=== PATIENT | female | born 1955 | race Caucasian/White ===

== ENCOUNTER 2023-12-26 11:05 | Outpatient (CLI) | payer MEDICARE | END 2023-12-26 11:06 | disposition home or self-care (01) | LOC: CSHMAMMO 11:05 | PROVIDERS: ATTEND Family Medicine | DX: Z12.31 Encounter for screening mammogram for malignant neoplasm of breast (principal); M81.0 Age-related osteoporosis without current pathological fracture; M85.89 Other specified disorders of bone density and structure, multiple sites; Z80.3 Family history of malignant neoplasm of breast; Z98.890 Other specified postprocedural states | CPT/HCPCS: 77063; 77067; 77080 ==

== ENCOUNTER 2025-07-02 09:40 | Outpatient (CLI) | payer MEDICARE ==
[2025-07-02 11:40] LABS: Estimated GFR - POC 69.0
[2025-07-02] MEDS ORDERED: Iopamidol 300 61% 100 ML VIAL FS ONE (14:02)
== END 2025-07-02 09:41 | disposition home or self-care (01) ==
LOC: CSHCT 09:40
PROVIDERS: ATTEND Family Medicine
DX: R10.11 Right upper quadrant pain (principal)
CPT/HCPCS: 74177; 82565; Q9967